=== PATIENT | female | born 1970 | race Caucasian/White ===

== ENCOUNTER → 2019-11-14 09:54 | Outpatient (BNVA) | payer OTHER, SELFPAY | PROVIDERS: PCP Internal Medicine; Referring Provider Internal Medicine; Visit Provider Physician Assistant | DX: Z76.89 Persons encountering health services in other specified circumstances (principal) ==

== ENCOUNTER → 2019-12-24 08:14 | Outpatient (BNVA) | payer OTHER, SELFPAY | PROVIDERS: PCP Internal Medicine; Referring Provider Internal Medicine; Visit Provider Surgery | DX: Z76.89 Persons encountering health services in other specified circumstances (principal) ==

== ENCOUNTER → 2020-01-16 08:01 | Outpatient (BNVA) | payer OTHER, SELFPAY | PROVIDERS: PCP Internal Medicine; Referring Provider Internal Medicine; Visit Provider Surgery | DX: Z76.89 Persons encountering health services in other specified circumstances (principal) ==

== ENCOUNTER 2020-01-19 09:20 | Outpatient (REF) | payer BC, SELFPAY ==
--- NOTE | 2020-01-19 09:25 | US_ITS ---
EXAMINATION: US COMPLETE ABDOMEN WITH LIVER ELASTOGRAPHY CLINICAL INFORMATION: Obesity COMPARISON: None. TECHNIQUE: Real-time imaging of the abdominal viscera. Noninvasive ultrasound liver fibrosis assessment is performed using Joel ElastPQ point quantification shear wave elastography (pSWE) with a 5 MHz transducer. Multiple elastography samples are obtained. FINDINGS: PANCREAS: Normal. ABDOMINAL AORTA: The proximal, middle, and distal aortic segments are normal in caliber. INFERIOR VENA CAVA: Visualized portions are normal. LIVER: Liver echotexture is increased. The liver is normal in size and contour. No focal lesion or intrahepatic biliary duct dilatation. The right lobe measures 16.5 cm in length. The left lobe measures 12.6 cm in length. The main portal vein is patent with appropriate hepatopedal flow. Shear wave elastography provides a median stiffness of 1.3 m/s (reference: normal median stiffness is 0.81 - 1.22 m/s). The IQR/median stiffness to assess sampling precision is 0.1 (reference: optimal IQR/median stiffness is under 0.3). GALLBLADDER: Surgically removed COMMON BILE DUCT: Normal in caliber measuring 0.6 cm in diameter. RIGHT KIDNEY: There is fullness of the right renal pelvis. No definite hydronephrosis is seen. No renal calculi or focal parenchymal lesions. The kidney measures 12.7 cm in maximum dimension. LEFT KIDNEY: Normal. No hydronephrosis. No renal calculi or focal parenchymal lesions. The kidney measures 11.1 cm in maximum dimension. SPLEEN: Normal. The spleen measures 9.8 cm in maximum dimension. FREE FLUID: None. US/US abdomen comp w elastography IMPRESSION: 1. Impression: Echogenic liver probably representing fatty infiltration. Fullness of the right renal pelvis. No definite hydronephrosis seen. Post cholecystectomy. 2. Elastography: Metavir score F0 to F1 suggestive of normal to mild increased risk of developing liver fibrosis.
--- NOTE | 2020-01-19 09:38 | XR_ITS ---
EXAMINATION: XR CHEST CLINICAL INFORMATION: Elevated BMI COMPARISON: Previous chest CT October 2019 TECHNIQUE: 2 views of the chest were obtained. FINDINGS: The cardiac and mediastinal contours are normal. There is increased density at the left first rib costochondral cartilage. This appears higher in position than the nodule in the left upper lobe identified by chest CT scan. There is an 8 mm nodule that projects over the left posterior seventh rib. It is uncertain whether this corresponds to pulmonary nodule seen by chest CT. The lungs are otherwise clear. There is no pleural effusion or pneumothorax. There are mild degenerative changes of the spine. XR/XR chest 2V IMPRESSION: Question left upper lobe nodule projecting over the posterior seventh rib corresponding to chest CT abnormality. Either follow-up chest CT in 6-12 months, PET/CT or tissue sampling should be considered.
--- NOTE | 2020-01-19 09:38 | FL_ITS ---
EXAMINATION: XR GI SERIES CLINICAL INFORMATION: Obesity. Preop. COMPARISON: None TECHNIQUE: Upper GI was performed using thin and thick barium and effervescent granules. FINDINGS: The esophagus is normal-appearing. No reflux or hernia is seen. Esophageal motility is normal. The stomach and duodenum are normal-appearing. No fold thickening, mass, ulcer or stricture is seen. FLUOROSCOPY TIME: 0.6 minutes DOSE AREA PRODUCT: 7.9 kumar per centimeter squared. 28 saved fluoroscopic images. FL/FL upper GI series IMPRESSION: Unremarkable examination.
== END 2020-01-19 09:21 | disposition home or self-care (01) ==
LOC: HO.US 09:20
PROVIDERS: Visit Provider Surgery
DX: Z01.818 Encounter for other preprocedural examination (principal); K21.9 Gastro-esophageal reflux disease without esophagitis; E66.01 Morbid (severe) obesity due to excess calories; Z68.37 Body mass index [BMI] 37.0-37.9, adult; R73.03 Prediabetes; E78.5 Hyperlipidemia, unspecified
CPT/HCPCS: 71046; 74240; 76705; 76981

== ENCOUNTER → 2020-01-26 08:44 | Outpatient (REF) | payer BC, SELFPAY ==
--- NOTE | 2020-01-26 08:48 | CA_ITS ---
Transthoracic Echocardiogram Patient (Last, First, Middle): Yola Ro D Gender: Female Date of : 1970 Age: 49 Procedure Date: 01/26/2020 Procedure Type: Transthoracic Echocardiogram Location: OP Height: 167.64 cm Weight: 104.78 kg BSA: 2.13 m2 Heart Rate: bpm BP: 120 / 68 mmHg Type Disk Quality Control Supervisor: Referring MD: Rajeev Cox MD Symptoms: I10 HTN, Z01.818 PRE OP Study Quality: Fair ECG Rhythm: Sinus Conclusions: - The left ventricular systolic function is low normal. The visually estimated ejection fraction is between 50-55%. - No obvious valvular pathology seen on this study. Findings Procedure Information Contrast agent, definity, is being given per protocol without apparent complications. Left Ventricle Normal left ventricular cavity size. There is mildly increased left ventricular wall thickness. The left ventricular systolic function is low normal. The visually estimated ejection fraction is between 50-55%. The calculated ejection fraction is 53% by biplane method. There is no evidence of regional wall motion abnormalities. Diastolic function is normal for age. Right Ventricle Normal right ventricular cavity size and systolic function. Aortic Valve There is a normal trileaflet aortic valve. There is no aortic valve stenosis. There is no aortic valve regurgitation. Mitral Valve The mitral valve appears normal. There is trace mitral valve regurgitation. There is no mitral valve stenosis. Pulmonic Valve The pulmonic valve was not well visualized. Tricuspid Valve Normal tricuspid valve structure. There is trace tricuspid valve regurgitation. The pulmonary artery systolic pressure is normal. Great Vessels The aortic annulus, sinuses of valsalva, and asc aorta are normal in size. Venous The inferior vena cava is normal in size and collapses greater than 50% with inspiration. Pericardium/Pleural There is no evidence of pericardial effusion. Prior Study Comparison No prior study available for comparison. Recommendations, Care & Conclusions No obvious valvular pathology seen on this study. Measurements 2D Linear Measurements IVSd: 1.03 0.6-0.9/0.6-1.0 cm LVIDd: 4.17 3.9-5.3/4.2-5.9 cm LVIDd Index: 1.96 2.4-3.2/2.2-3.1 cm/m2 LVIDs: 2.77 2.0-3.6 cm LVPWd: 1.12 0.7-1.1 cm Ao Root: 3.20 2.1-3.5 cm LA Diam: 3.80 2.7-3.8/3.0-4.0 cm LAIDs Index: 1.78 1.5-2.3 cm/m2 LV Mass: 187.12 67-162/88-224 g LV Mass Index: 87.85 43-95/49-115 g/m2 LVOT Diam: 2.20 3.0+(-)1.3 cm 2D Systolic Function EF 4C: 54.60 >55% EF 2C: 51.30 >55% EF BiP: 52.80 >55% Mitral Valve MV Pk E: 0.79 MV PK A: 0.83 MV Decel Time: 165.00 E/A: 1.00 E'Lateral: 11.60 E'Medial: 10.40 E/E' Med: 7.60 E/E' Lat: 6.80 PHT: 48.00 MVA PHT: 4.58 Decel [place]: 4.78 Aortic Valve AoV Pk Phan: 1.17 AoV Mn Phan: 0.75 AoV VTI: 0.24 AoV Pk Grad: 5.00 Aov Mn Grad: 3.00 JOELLEN Cont.VTI: 2.81 LVOT LVOT Pk Phan: 0.89 LVOT Mn Phan: 0.57 LVOT VTI: 0.18 LVOT Pk Grad: 3.00 LVOT Mn Grad: 2.00 LVOT Diam: 2.20 LVOT Area: 3.80 Diastolic Function MV Pk E: 0.79 MV Pk A: 0.83 E/A: 1.00 E'Medial: 10.40 E/E' Med: 7.60 E' Laterial: 11.60 E/E' Lat: 6.80 Tricuspid Valve TR Pk Phan: 2.15 TR Pk Grad: 18.00 RA Press: 3.00 RVSP: 21.00 Great Vessels Aorta Ao Root-2D: 3.20 2.0-3.7 cm Ao Asc: 3.20 2.1-3.4 cm Pulmonary Valve PV Pk Phan: 0.96 Peak PV Grad: 4.00 Updated in Other Vendor System with Status of Final Bereket Ruiz MD electronically signed on 01/26/2020 12:34:01 PM with status of Final
--- NOTE | 2020-01-26 08:48 | ECG_ITS ---
Test Reason : CP Blood Pressure : / mmHG Vent. Rate : 067 BPM Atrial Rate : 067 BPM P-R Int : 156 ms QRS Dur : 086 ms QT Int : 396 ms P-R-T Axes : 036 008 006 degrees QTc Int : 418 ms Normal sinus rhythm Normal ECG No previous ECGs available Referred By: Rajeev Cox Electronically Signed By:Charles Hicks
--- NOTE | 2020-01-26 08:48 | CA_ITS ---
Acquisition Time: 2020-01-26 10:10:00 Total Exercise Time: 00:05:00 Test Indications: Abnormal ECG Medications: see chart Protocol: [place] Max HR: 184 BPM 106% of Pred: 173 BPM Max BP: 160/084 mmHG Max Work Load: 7.0 METS Exercise stress test with exercise 5 min of [place] protocol, achieving 98% MPHR, 7 METS, with mild sob, no chest discomfort, without arrythmia, with normotensive response to exercise, without EKG changes meeting criteria for ischemia. Test reviewed with Dr Hicks. Referred By: Rajeev Cox Overread By: TI ALAN
== END ==
LOC: HO.CARD 08:44
PROVIDERS: Visit Provider Surgery
DX: Z01.818 Encounter for other preprocedural examination (principal); R06.02 Shortness of breath; I10 Essential (primary) hypertension; E66.9 Obesity, unspecified; Z68.37 Body mass index [BMI] 37.0-37.9, adult
CPT/HCPCS: 93005; 93017; 93306; Q9957

== ENCOUNTER 2020-02-02 10:06 | Outpatient (REF) | payer BC, SELFPAY ==
[2020-02-04 13:53] LABS: H Pylori Breath Test NOT DETECTED (NOT DETECTED)
== END 2020-02-02 10:07 | disposition home or self-care (01) ==
LOC: HO.LNP 10:06
PROVIDERS: PCP Internal Medicine; Visit Provider Physician Assistant
DX: Z11.0 Encounter for screening for intestinal infectious diseases (principal)
CPT/HCPCS: 83013

== ENCOUNTER → 2020-02-11 08:23 | Outpatient (BNVA) | payer OTHER, SELFPAY | PROVIDERS: PCP Internal Medicine; Visit Provider Surgery | DX: Z76.89 Persons encountering health services in other specified circumstances (principal) ==

== ENCOUNTER 2020-02-16 11:00 | Outpatient (REF) | payer BC, SELFPAY ==
[2020-02-16 11:53] LABS: MANUAL DIFF FLAG NO
[2020-02-16 11:56] LABS: Basophils Percent Auto 0.5 % (0-2); Eosinophils Absolute Auto 0.1 X10*3/uL (0.0-0.4); Eosinophils Percent Auto 1.4 % (0-4); Hemoglobin 13.8 g/dl (12.0-16.0); Imm Gran Abs Auto 0.01 X10*3/uL (0.00-0.03); Imm Gran Pct Auto 0.2 % (0.0-0.4); Lymphocytes Absolute Auto 1.7 X10*3/uL (1.2-4.9); Lymphocytes Percent Auto 41.4 % (20-40); Mean Corpuscular HGB Conc 32.1 g/dl (31.0-35.0); Mean Corpuscular Hemoglobin 26.4 pg (27.0-33.0); Mean Corpuscular Volume 82.4 fL (80-98); Mean Platelet Volume 10.2 fL (9.4-12.3); Monocytes Absolute Auto 0.3 X10*3/uL (0.1-1.2); Neutrophils Absolute Auto 2.1 X10*3/uL (2.0-8.3); Neutrophils Percent Auto 50.5 % (45-73); Platelet Count 226 X10*3/uL (160-400); Red Blood Count 5.22 X10*6/uL (4.20-5.50); Red Cell Distribution Width 13.1 % (11.0-16.0); White Blood Count 4.2 X10*3/uL (4.8-10.8)
[2020-02-16 12:22] LABS: Alanine Aminotransferase 22 U/L (0-31); Albumin Level 4.5 g/dL (3.5-5.0); Alkaline Phosphatase 93 U/L (39-117); Aspartate Amino Transferase 20 U/L (5-31); Bilirubin Total 0.5 mg/dL (0.0-1.0); Blood Urea Nitrogen 18 mg/dL (9-16); C Reactive Protein 0.29 mg/dL (< or = 0.50); Calcium 9.4 mg/dL (8.4-10.2); Cholesterol 245 mg/dL; Estimated Glomerular Filt Rate > 60; Glucose Random 99 mg/dL (60-115); HDL Cholesterol 45 mg/dL; LDL Cholesterol Calculated 183 mg/dl; Total Protein 7.3 g/dL (6.5-8.0); Triglycerides 85 mg/dL
[2020-02-16 12:40] LABS: Anion Gap 11 (12-20); Carbon Dioxide 30 mmol/L (22-29); Chloride 104 mmol/L (96-108); Potassium 4.3 mmol/l (3.3-5.1); Sodium 141 mmol/L (135-145)
[2020-02-16 12:42] LABS: Ferritin 144 ng/mL (10-250); TSH reflex Free T4 0.75 mIU/mL (0.32-4.0); Vitamin D 25-OH Total 10.1 ng/mL (>30)
[2020-02-16 13:20] LABS: Folate 8.2 ng/mL (> or = 4.0); Vitamin B12 492 pg/mL (200-900)
[2020-02-16 13:42] LABS: Estimated Average Glucose 128 mg/dL; Hemoglobin A1c % 6.1 %
[2020-02-17 17:43] LABS: Calcium (PTHI) 9.5 mg/dL (8.6-10.2); PTHI 32 pg/mL (14-64)
[2020-02-17 18:52] LABS: Insulin Level Total 15.1 uIU/mL
[2020-02-19 07:03] LABS: Zinc 89 mcg/dL (60-130)
[2020-02-20 06:33] LABS: Vitamin B1 <6 nmol/L (8-30)
[2020-02-20 12:26] LABS: Vitamin A 55 mcg/dL (38-98)
== END 2020-02-16 11:01 | disposition home or self-care (01) ==
LOC: HO.LAB 11:00
PROVIDERS: PCP Internal Medicine; Visit Provider Surgery
DX: R73.03 Prediabetes (principal); E78.5 Hyperlipidemia, unspecified; Z68.37 Body mass index [BMI] 37.0-37.9, adult
CPT/HCPCS: 36415; 80053; 80061; 82306; 82607; 82728; 82746; 83036; 83525; 83970; 84425; 84443; 84590; 84630; 85025; 86140

== ENCOUNTER → 2020-02-23 08:18 | Outpatient (BNVA) | payer OTHER, SELFPAY | PROVIDERS: PCP Internal Medicine; Visit Provider Dietitian, Registered | DX: Z76.89 Persons encountering health services in other specified circumstances (principal) ==

== ENCOUNTER → 2020-03-08 08:05 | Outpatient (BNVA) | payer OTHER, SELFPAY | PROVIDERS: PCP Internal Medicine; Visit Provider Surgery ==

== ENCOUNTER → 2020-03-31 08:22 | Outpatient (BNVA) | payer OTHER, SELFPAY | PROVIDERS: PCP Internal Medicine; Visit Provider Surgery ==

== ENCOUNTER → 2020-04-02 08:37 | Outpatient (BNVA) | payer OTHER, SELFPAY | PROVIDERS: PCP Internal Medicine; Visit Provider Dietitian, Registered ==

== ENCOUNTER → 2020-04-16 08:50 | Outpatient (BNVA) | payer OTHER, SELFPAY | PROVIDERS: PCP Internal Medicine; Visit Provider Dietitian, Registered ==

== ENCOUNTER → 2020-05-03 08:13 | Outpatient (BNVA) | payer OTHER, SELFPAY | PROVIDERS: PCP Internal Medicine; Visit Provider Dietitian, Registered ==

== ENCOUNTER → 2020-05-14 08:14 | Outpatient (BNVA) | payer OTHER, SELFPAY | PROVIDERS: PCP Internal Medicine; Visit Provider Surgery ==

== ENCOUNTER → 2020-05-25 13:57 | Outpatient (BNVA) | payer OTHER, SELFPAY | PROVIDERS: PCP Internal Medicine; Visit Provider Dietitian, Registered | DX: E66.9 Obesity, unspecified (principal) | CPT/HCPCS: 97803 ==

== ENCOUNTER → 2020-06-09 08:39 | Outpatient (BNVA) | payer OTHER, SELFPAY | PROVIDERS: PCP Internal Medicine; Visit Provider Surgery ==

== ENCOUNTER → 2021-04-15 12:06 | Outpatient (BNVA) | payer OTHER, SELFPAY | PROVIDERS: PCP Internal Medicine; Visit Provider Physician Assistant Surgical ==

== ENCOUNTER → 2021-05-05 08:24 | Outpatient (BNVA) | payer OTHER, SELFPAY | PROVIDERS: PCP Internal Medicine; Visit Provider Dietitian, Registered | DX: E66.9 Obesity, unspecified (principal) | CPT/HCPCS: 97802 ==

== ENCOUNTER → 2021-05-10 15:15 | Outpatient (BNVA) | payer OTHER, SELFPAY | PROVIDERS: PCP Internal Medicine; Visit Provider Counselor Mental Health | DX: F41.8 Other specified anxiety disorders (principal); E66.9 Obesity, unspecified; G47.00 Insomnia, unspecified ==

== ENCOUNTER → 2021-05-23 08:41 | Outpatient (BNVA) | payer OTHER, SELFPAY | PROVIDERS: PCP Internal Medicine; Visit Provider Surgery | DX: Z13.89 Encounter for screening for other disorder (principal) ==

== ENCOUNTER → 2022-06-15 08:06 | Outpatient (BNVA) | payer OTHER, SELFPAY | PROVIDERS: PCP Internal Medicine; Visit Provider Nurse Practitioner Family ==

== ENCOUNTER → 2022-07-24 | Outpatient (REF) | payer OTHER, SELFPAY | LOC: HO.SL | PROVIDERS: PCP Internal Medicine; Visit Provider Nurse Practitioner Family | DX: G47.33 Obstructive sleep apnea (adult) (pediatric) (principal); R06.83 Snoring; R40.0 Somnolence; E66.9 Obesity, unspecified | CPT/HCPCS: 95806 ==